=== PATIENT | female | born 1960 | race Two or more races ===

== ENCOUNTER 2021-07-13 12:41 | Outpatient (CLI) | payer OTHER | END 2021-07-13 12:53 | disposition home or self-care (01) | LOC: RAD 12:41 | PROVIDERS: ATTEND Obstetrics & Gynecology | DX: M81.0 Age-related osteoporosis without current pathological fracture (principal) ==

== ENCOUNTER 2021-10-09 07:04 | Outpatient (CLI) | payer OTHER | END 2021-10-09 07:18 | disposition home or self-care (01) | LOC: TOM 07:04 | PROVIDERS: ATTEND Internal Medicine Cardiovascular Disease | DX: G45.9 Transient cerebral ischemic attack, unspecified (principal) ==

== ENCOUNTER 2022-09-13 16:09 | Outpatient (CLI) | payer OTHER | END 2022-09-13 16:12 | disposition home or self-care (01) | LOC: RAD 16:09 | DX: J18.8 Other pneumonia, unspecified organism (principal) ==

== ENCOUNTER 2023-05-15 09:12 | Outpatient (CLI) | payer OTHER | END 2023-05-15 09:19 | disposition home or self-care (01) | LOC: SONOGRAMA 09:12 | PROVIDERS: ATTEND Internal Medicine | DX: E06.3 Autoimmune thyroiditis (principal) ==

== ENCOUNTER → 2023-06-10 06:20 | Outpatient (CLI) | payer OTHER ==
[2023-06-10 08:26] LABS: INR 0.96; PARTIAL THROMBOPLASTIN TIME 29.6 SECONDS (22.0-34.0); PROTHROMBIN TIME 10.1 SECONDS (9.0-11.5)
[2023-06-10 09:04] LABS: HEMATOCRIT 40.6 % (36.0-45.00); HEMOGLOBIN 13.9 g/dL (12.0-15.00); MEAN CELL VOLUME 90.9 fL (80.00-100.00); MEAN CORPUSCULAR HGB CONC 34.1 g/dl (32.0-36.0); PLATELET COUNT 259 K/uL (150-450); RED BLOOD COUNT 4.47 M/uL (4.00-6.00); RED CELL DISTRIBUTION WIDTH 12.7 % (11.5-14.5)
[2023-06-10 09:15] LABS: % SATURACION 14.7 % (15-50); BILIRUBIN TOTAL 1.05 mg/dL (0.3-1.2); CALCIUM 9.3 mg/dL (8.5-10.1); CREATININE SERUM 0.74 mg/dL (0.55-1.02); FERRITIN 85.6 NG/ML (8-252); GFR 79.01; GLOBULINA 3.7 G/DL (2.4-3.5); POTASSIUM 4.3 mEq/L (3.5-5.1); TOTAL PROTEIN 7.7 gm/dL (6.4-8.2)
[2023-06-10 09:17] LABS: TSH 5.29 uIU/mL (0.358-3.74)
[2023-06-10 10:39] LABS: MANUAL PLATELET COUNT 386
[2023-06-10 10:40] LABS: PLATELET ESTIMATE NORMAL (NORMAL)
[2023-06-10 11:18] LABS: FOLIC ACID > 20.00 ng/ml (4.78-20)
== END | disposition home or self-care (01) ==
LOC: LAB 06:20
PROVIDERS: ATTEND Internal Medicine Hematology & Oncology
DX: D50.8 Other iron deficiency anemias (principal); R79.9 Abnormal finding of blood chemistry, unspecified; I10 Essential (primary) hypertension; R74.02 Elevation of levels of lactic acid dehydrogenase [LDH]; K76.89 Other specified diseases of liver; D63.8 Anemia in other chronic diseases classified elsewhere; D55.0 Anemia due to glucose-6-phosphate dehydrogenase [G6PD] deficiency; D51.1 Vitamin B12 deficiency anemia due to selective vitamin B12 malabsorption with proteinuria; D51.0 Vitamin B12 deficiency anemia due to intrinsic factor deficiency; E03.8 Other specified hypothyroidism; E06.3 Autoimmune thyroiditis; D68.8 Other specified coagulation defects; D51.3 Other dietary vitamin B12 deficiency anemia; M19.90 Unspecified osteoarthritis, unspecified site; L63.0 Alopecia (capitis) totalis

== ENCOUNTER 2023-06-10 07:25 | Outpatient (CLI) | payer OTHER | END 2023-06-10 07:32 | disposition home or self-care (01) | LOC: MAMO-SONO 07:25 | PROVIDERS: ATTEND Obstetrics & Gynecology | DX: N60.11 Diffuse cystic mastopathy of right breast (principal); N60.12 Diffuse cystic mastopathy of left breast; N60.19 Diffuse cystic mastopathy of unspecified breast; Z12.31 Encounter for screening mammogram for malignant neoplasm of breast ==

== ENCOUNTER 2023-07-01 14:04 | Outpatient (CLI) | payer OTHER | END 2023-07-01 14:07 | disposition home or self-care (01) | LOC: SONOGRAMA 14:04 | PROVIDERS: ATTEND Pathology Anatomic Pathology & Clinical Pathology | DX: E04.2 Nontoxic multinodular goiter (principal); D34 Benign neoplasm of thyroid gland ==

== ENCOUNTER 2023-08-06 07:23 | Outpatient (CLI) | payer OTHER | END 2023-08-06 07:30 | disposition home or self-care (01) | LOC: SONOGRAMA 07:23 | PROVIDERS: ATTEND General Practice | DX: E80.4 Gilbert syndrome (principal); K64.9 Unspecified hemorrhoids ==

== ENCOUNTER 2023-08-10 07:21 | Outpatient (CLI) | payer OTHER ==
[2023-08-10 10:21] LABS: HEMATOCRIT 41.3 % (36.0-45.00); HEMOGLOBIN 14.1 g/dL (12.0-15.00); MEAN CELL VOLUME 91.6 fL (80.00-100.00); MEAN CORPUSCULAR HEMOGLOBIN 31.3 pg (27.00-32.0); MEAN CORPUSCULAR HGB CONC 34.1 g/dl (32.0-36.0); PLATELET COUNT 199 K/uL (150-450); RED CELL DISTRIBUTION WIDTH 12.6 % (11.5-14.5)
[2023-08-10 10:29] LABS: PH,URINE 5.5 (5.0-8.0); URINE APPEARANCE Clear; URINE BILIRRUBIN Negative (NEGATIVE); URINE BLOOD Negative; URINE COLOR Yellow; URINE GLUCOSE Negative (NEGATIVE); URINE LEUKOCYTE Trace; URINE NITRATE Negative; URINE PROTEIN Negative (NEGATIVE); URINE UROBILINOGEN 0.2 E.U./dl
[2023-08-10 10:36] LABS: URINE BACTERIA 11.3 uL (0.0-1933); URINE RBC 7.3 uL (0.0-20.8); URINE WBC 9.8 uL (0.0-23.2)
[2023-08-10 10:48] LABS: ALBUMIN 4.2 gm/dL (3.4-5.0); BILIRUBIN TOTAL 1.32 mg/dL (0.3-1.2); CALCIUM 9.3 mg/dL (8.5-10.1); CHOL HDL RATIO 1.8 (0-5.0); CREATININE SERUM 0.64 mg/dL (0.55-1.02); FREE TRIODOTIRONINE 3.25 pg/ml (2.18-3.98); GFR 93.42; GLOBULINA 3.4 G/DL (2.4-3.5); POTASSIUM 4.69 mEq/L (3.5-5.1); T4 FREE 0.81 NG/ML (0.76-1.46); T4 TOTAL 6.15 UG/DL (4.8-13.9); TOTAL PROTEIN 7.6 gm/dL (6.4-8.2); TSH 2.15 uIU/mL (0.358-3.74)
[2023-08-10 11:04] LABS: COL EPI 90 SECONDS (82-175)
[2023-08-10 19:18] LABS: ob NEGATIVE (NEGATIVE)
[2023-08-11 13:49] LABS: FOLIC ACID > 20.00 ng/ml (4.78-20)
[2023-08-11 14:57] LABS: VITAMIN D3 25 HYDROXY 51.72 ng/ml (30-120)
== END 2023-08-10 07:22 | disposition home or self-care (01) ==
LOC: LAB 07:21
PROVIDERS: ATTEND Internal Medicine Hematology & Oncology
DX: D51.3 Other dietary vitamin B12 deficiency anemia (principal); M19.90 Unspecified osteoarthritis, unspecified site; L63.0 Alopecia (capitis) totalis; E80.4 Gilbert syndrome; M62.830 Muscle spasm of back; Z13.1 Encounter for screening for diabetes mellitus; Z13.220 Encounter for screening for lipoid disorders; Z13.29 Encounter for screening for other suspected endocrine disorder; E55.9 Vitamin D deficiency, unspecified

== ENCOUNTER 2024-03-12 09:08 | Outpatient (CLI) | payer OTHER ==
[2024-03-12 09:45] LABS: HEMATOCRIT 41.2 % (36.0-45.00); HEMOGLOBIN 14.1 g/dL (12.0-15.00); MEAN CELL VOLUME 91.9 fL (80.00-100.00); MEAN CORPUSCULAR HEMOGLOBIN 31.5 pg (27.00-32.0); MEAN CORPUSCULAR HGB CONC 34.3 g/dl (32.0-36.0); PLATELET COUNT 211 K/uL (150-450); RED BLOOD COUNT 4.48 M/uL (4.00-6.00); RED CELL DISTRIBUTION WIDTH 13.1 % (11.5-14.5)
[2024-03-12 09:48] LABS: ERYTHROCYTE SEDIMENTATION RATE 2 mm/hr
[2024-03-12 09:59] LABS: URINE APPEARANCE Clear; URINE BILIRRUBIN Negative (NEGATIVE); URINE BLOOD Negative; URINE COLOR Yellow; URINE GLUCOSE Negative (NEGATIVE); URINE KETONE Negative (NEGATIVE); URINE LEUKOCYTE Moderate; URINE NITRATE Negative; URINE PROTEIN Negative (NEGATIVE); URINE UROBILINOGEN 0.2 E.U./dl
[2024-03-12 10:03] LABS: URINE BACTERIA 36.5 uL (0.0-1933); URINE EPITHELIAL CELLS 4.1 uL (0.0-38.8); URINE RBC 4.1 uL (0.0-20.8); URINE WBC 22.3 uL (0.0-23.2)
[2024-03-12 10:14] LABS: URINE CAST 0.15 uL (0.0-1.40)
[2024-03-12 11:20] LABS: ALBUMIN 4.3 gm/dL (3.4-5.0); ALKALINE PHOSPHATASE 55 U/L (50-136); ALT/SGPT 20 U/L (12-78); ANION GAP 6 (10.0-20.0); AST/SGOT 20 U/L (15-37); BILIRUBIN TOTAL 1.77 mg/dL (0.3-1.2); BLOOD UREA NITROGEN 12 mg/dL (7-18); BUN CREA RATIO 16 (7.0-25.0); C-REACTIVE PROTEIN < 0.29 MG/DL (0.00-0.29); CALCIUM 9.5 mg/dL (8.5-10.1); CARBON DIOXIDE 34 mEq/L (21-32); CHLORIDE 108 mmol/L (98-107); CHOL HDL RATIO 2.1 (0-5.0); CHOLESTEROL 230 mg/dL (0-200); CREATININE SERUM 0.73 mg/dL (0.55-1.02); FREE TRIODOTIRONINE 2.83 pg/ml (2.18-3.98); GFR 80.01; GLOBULINA 3.4 G/DL (2.4-3.5); GLUCOSE FASTING 90 mg/dL (65-100); HDL 111 mg/dl (40-60); LDL 108 mg/dl (0-130); OSMOLALITY SERUM 284 MOSM/KG (275-295); POTASSIUM 4.95 mEq/L (3.5-5.1); SODIUM 143 mmol/L (136-145); T4 TOTAL 6.08 UG/DL (4.8-13.9); TOTAL PROTEIN 7.7 gm/dL (6.4-8.2); TRIGLYCERIDES 57 mg/dL (0-150); VLDL 11 (0-39)
== END 2024-03-12 09:30 | disposition home or self-care (01) ==
LOC: LAB 09:08
PROVIDERS: ATTEND Internal Medicine
DX: E80.4 Gilbert syndrome (principal); D51.0 Vitamin B12 deficiency anemia due to intrinsic factor deficiency; R73.9 Hyperglycemia, unspecified; E78.9 Disorder of lipoprotein metabolism, unspecified; E03.9 Hypothyroidism, unspecified; M62.830 Muscle spasm of back; M19.90 Unspecified osteoarthritis, unspecified site; Z13.1 Encounter for screening for diabetes mellitus; Z13.220 Encounter for screening for lipoid disorders; Z13.29 Encounter for screening for other suspected endocrine disorder; E55.9 Vitamin D deficiency, unspecified; Z12.11 Encounter for screening for malignant neoplasm of colon

== ENCOUNTER 2024-03-25 10:38 | Outpatient (CLI) | payer OTHER | END 2024-03-25 10:45 | disposition home or self-care (01) | LOC: RAD 10:38 | PROVIDERS: ATTEND Internal Medicine | DX: R05.9 Cough, unspecified (principal) ==

== ENCOUNTER 2024-05-15 07:31 | Outpatient (CLI) | payer OTHER | END 2024-05-15 07:34 | disposition home or self-care (01) | LOC: SONOGRAMA 07:31 | DX: E06.3 Autoimmune thyroiditis (principal) ==

== ENCOUNTER 2024-05-29 07:14 | Outpatient (CLI) | payer OTHER ==
[2024-05-29 08:26] LABS: HEMATOCRIT 39.5 % (36.0-45.00); HEMOGLOBIN 13.7 g/dL (12.0-15.00); MEAN CELL VOLUME 91.5 fL (80.00-100.00); MEAN CORPUSCULAR HEMOGLOBIN 31.7 pg (27.00-32.0); MEAN CORPUSCULAR HGB CONC 34.6 g/dl (32.0-36.0); PLATELET COUNT 224 K/uL (150-450); RED BLOOD COUNT 4.31 M/uL (4.00-6.00); RED CELL DISTRIBUTION WIDTH 12.8 % (11.5-14.5)
[2024-05-29 08:33] LABS: PH,URINE 7.5 (5.0-8.0); URINE APPEARANCE Clear; URINE BILIRRUBIN Negative (NEGATIVE); URINE BLOOD Negative; URINE COLOR Yellow; URINE GLUCOSE Negative (NEGATIVE); URINE KETONE Negative (NEGATIVE); URINE LEUKOCYTE Trace; URINE NITRATE Negative; URINE PROTEIN Negative (NEGATIVE); URINE UROBILINOGEN 0.2 E.U./dl
[2024-05-29 08:35] LABS: ERYTHROCYTE SEDIMENTATION RATE 8 mm/hr
[2024-05-29 08:37] LABS: URINE BACTERIA 6.2 uL (0.0-1933); URINE WBC 6.9 uL (0.0-23.2)
[2024-05-29 08:40] LABS: URINE EPITHELIAL CELLS 0.7 uL (0.0-38.8); URINE RBC 1.5 uL (0.0-20.8)
[2024-05-29 09:17] LABS: MYCOPLASMA PNEUMONIAE IGM NON REACTIVE (NO REACTIVE)
[2024-05-29 09:29] LABS: ALKALINE PHOSPHATASE 55 U/L (50-136); ALT/SGPT 20 U/L (12-78); ANION GAP 7 (10.0-20.0); AST/SGOT 22 U/L (15-37); BILIRUBIN TOTAL 1.26 mg/dL (0.3-1.2); BLOOD UREA NITROGEN 11 mg/dL (7-18); BUN CREA RATIO 16 (7.0-25.0); CALCIUM 9.3 mg/dL (8.5-10.1); CARBON DIOXIDE 31 mEq/L (21-32); CHLORIDE 108 mmol/L (98-107); CHOLESTEROL 214 mg/dL (0-200); GFR 83.98; GLOBULINA 3.3 G/DL (2.4-3.5); GLUCOSE FASTING 88 mg/dL (65-100); HDL 108 mg/dl (40-60); LDL 96 mg/dl (0-130); OSMOLALITY SERUM 280 MOSM/KG (275-295); POTASSIUM 4.51 mEq/L (3.5-5.1); SODIUM 141 mmol/L (136-145); T4 TOTAL 6.86 UG/DL (4.8-13.9); TOTAL PROTEIN 7.3 gm/dL (6.4-8.2); TRIGLYCERIDES 48 mg/dL (0-150); VLDL 9 (0-39)
[2024-05-29 09:34] LABS: C-REACTIVE PROTEIN < 0.29 MG/DL (0.00-0.29)
[2024-05-29 09:43] LABS: FOLIC ACID > 20.00 ng/ml (4.78-20); VITAMIN D3 25 HYDROXY 49.72 ng/ml (30-120)
[2024-05-29 09:50] LABS: FREE TRIODOTIRONINE 2.82 pg/ml (2.18-3.98)
[2024-05-29 12:00] LABS: MANUAL PLATELET COUNT 412
[2024-05-29 12:04] LABS: PLATELET ESTIMATE NORMAL (NORMAL)
== END 2024-05-29 07:16 | disposition home or self-care (01) ==
LOC: LAB 07:14
PROVIDERS: ATTEND Internal Medicine
DX: E04.9 Nontoxic goiter, unspecified (principal); E80.4 Gilbert syndrome; N28.1 Cyst of kidney, acquired; E03.9 Hypothyroidism, unspecified; D51.0 Vitamin B12 deficiency anemia due to intrinsic factor deficiency; E78.9 Disorder of lipoprotein metabolism, unspecified; R73.9 Hyperglycemia, unspecified; D59.12 Cold autoimmune hemolytic anemia; D51.3 Other dietary vitamin B12 deficiency anemia; E04.2 Nontoxic multinodular goiter; B96.0 Mycoplasma pneumoniae [M. pneumoniae] as the cause of diseases classified elsewhere; K75.4 Autoimmune hepatitis; L63.0 Alopecia (capitis) totalis; M19.90 Unspecified osteoarthritis, unspecified site; K76.89 Other specified diseases of liver; R74.02 Elevation of levels of lactic acid dehydrogenase [LDH]; I10 Essential (primary) hypertension; D50.8 Other iron deficiency anemias; E55.9 Vitamin D deficiency, unspecified

== ENCOUNTER 2024-06-18 11:19 | Outpatient (CLI) | payer OTHER | END 2024-06-18 11:26 | disposition home or self-care (01) | LOC: MAMO-SONO 11:19 | PROVIDERS: ATTEND Internal Medicine Hematology & Oncology | DX: N63.0 Unspecified lump in unspecified breast (principal); N64.4 Mastodynia; D51.0 Vitamin B12 deficiency anemia due to intrinsic factor deficiency; D59.12 Cold autoimmune hemolytic anemia; D51.3 Other dietary vitamin B12 deficiency anemia; E04.2 Nontoxic multinodular goiter; B96.0 Mycoplasma pneumoniae [M. pneumoniae] as the cause of diseases classified elsewhere; K75.4 Autoimmune hepatitis; D59.19 Other autoimmune hemolytic anemia; L63.0 Alopecia (capitis) totalis; M19.90 Unspecified osteoarthritis, unspecified site; Z12.31 Encounter for screening mammogram for malignant neoplasm of breast ==

== ENCOUNTER 2024-09-18 06:17 | Outpatient (CLI) | payer OTHER ==
[2024-09-18 08:00] LABS: HEMATOCRIT 40.3 % (36.0-45.00); HEMOGLOBIN 13.9 g/dL (12.0-15.00); MEAN CELL VOLUME 91.4 fL (80.00-100.00); MEAN CORPUSCULAR HEMOGLOBIN 31.5 pg (27.00-32.0); MEAN CORPUSCULAR HGB CONC 34.4 g/dl (32.0-36.0); PLATELET COUNT 188 K/uL (150-450); RED BLOOD COUNT 4.41 M/uL (4.00-6.00); RED CELL DISTRIBUTION WIDTH 12.6 % (11.5-14.5)
[2024-09-18 08:03] LABS: PH,URINE 7.5 (5.0-8.0); URINE APPEARANCE Clear; URINE BILIRRUBIN Negative (NEGATIVE); URINE BLOOD Negative; URINE COLOR Yellow; URINE GLUCOSE Negative (NEGATIVE); URINE KETONE Negative (NEGATIVE); URINE LEUKOCYTE Trace; URINE NITRATE Negative; URINE PROTEIN Negative (NEGATIVE); URINE UROBILINOGEN 0.2 E.U./dl
[2024-09-18 08:04] LABS: URINE BACTERIA 12.2 uL (0.0-1933); URINE WBC 5.5 uL (0.0-23.2)
[2024-09-18 08:07] LABS: ERYTHROCYTE SEDIMENTATION RATE 2 mm/hr
[2024-09-18 08:12] LABS: URINE EPITHELIAL CELLS 0.9 uL (0.0-38.8); URINE RBC 0.2 uL (0.0-20.8)
[2024-09-18 09:33] LABS: ALKALINE PHOSPHATASE 58 U/L (50-136); ALT/SGPT 19 U/L (12-78); ANION GAP 6 (10.0-20.0); AST/SGOT 24 U/L (15-37); BILIRUBIN TOTAL 1.27 mg/dL (0.3-1.2); BLOOD UREA NITROGEN 9 mg/dL (7-18); BUN CREA RATIO 13 (7.0-25.0); CALCIUM 8.9 mg/dL (8.5-10.1); CARBON DIOXIDE 33 mEq/L (21-32); CHLORIDE 105 mmol/L (98-107); CHOL HDL RATIO 2.1 (0-5.0); CHOLESTEROL 201 mg/dL (0-200); CREATININE SERUM 0.69 mg/dL (0.55-1.02); FREE TRIODOTIRONINE 2.99 pg/ml (2.18-3.98); GFR 85.38; GLOBULINA 3.2 G/DL (2.4-3.5); GLUCOSE FASTING 89 mg/dL (65-100); HDL 96 mg/dl (40-60); LDL 91 mg/dl (0-130); OSMOLALITY SERUM 278 MOSM/KG (275-295); POTASSIUM 4.29 mEq/L (3.5-5.1); SODIUM 140 mmol/L (136-145); T4 TOTAL 5.62 UG/DL (4.8-13.9); TOTAL PROTEIN 7.2 gm/dL (6.4-8.2); TRIGLYCERIDES 69 mg/dL (0-150); VLDL 13 (0-39)
[2024-09-18 09:34] LABS: C-REACTIVE PROTEIN < 0.29 MG/DL (0.00-0.29)
== END 2024-09-18 06:24 | disposition home or self-care (01) ==
LOC: LAB 06:17
PROVIDERS: ATTEND Internal Medicine
DX: E80.4 Gilbert syndrome (principal); D51.0 Vitamin B12 deficiency anemia due to intrinsic factor deficiency; R73.9 Hyperglycemia, unspecified; E78.9 Disorder of lipoprotein metabolism, unspecified; N28.1 Cyst of kidney, acquired; E04.9 Nontoxic goiter, unspecified

== ENCOUNTER → 2024-12-30 08:47 | Outpatient (CLI) | payer OTHER ==
[2024-12-30 10:03] LABS: BASO % 0.4 % (0.1-1.2); EOS # 0.05 (0.04-0.54); EOS % 0.7 % (0.7-7.0); HEMOGLOBIN 13.6 g/dL (11.2-15.7); LYMPH # 0.66 (1.18-3.74); LYMPH % 9.5 % (19.3-53.1); MEAN CORPUSCULAR HEMOGLOBIN 31.6 pg (25.6-32.2); MONO # 0.61 (0.24-0.82); MONO % 8.8 % (4.7-12.5); NEUT # 5.58 (1.56-6.13); NEUT % 80.3 % (34.0-71.1); PLATELET COUNT 194 K/uL (163-369); RED BLOOD COUNT 4.31 M/uL (3.93-5.22); RED CELL DISTRIBUTION WIDTH 12.1 % (11.6-14.4)
[2024-12-30 10:44] LABS: MYCOPLASMA PNEUMONIAE IGM NON REACTIVE (NO REACTIVE)
[2024-12-30 10:49] LABS: ALBUMIN 4.3 gm/dL (3.4-5.0); BILIRUBIN TOTAL 1.98 mg/dL (0.3-1.2); CALCIUM 9.2 mg/dL (8.5-10.1); CREATININE SERUM 0.67 mg/dL (0.55-1.02); GFR 88.33; GLOBULINA 3.2 G/DL (2.4-3.5); POTASSIUM 3.98 mEq/L (3.5-5.1); TOTAL PROTEIN 7.5 gm/dL (6.4-8.2)
[2024-12-30 11:21] LABS: RF NEGATIVE (NEGATIVE)
[2024-12-30 11:32] LABS: PH,URINE 5.5 (5.0-8.0); URINE APPEARANCE Clear; URINE BILIRRUBIN Negative (NEGATIVE); URINE BLOOD Negative; URINE COLOR Yellow; URINE GLUCOSE Negative (NEGATIVE); URINE KETONE Trace (NEGATIVE); URINE LEUKOCYTE Moderate; URINE NITRATE Negative; URINE PROTEIN Negative (NEGATIVE); URINE UROBILINOGEN 0.2 E.U./dl
[2024-12-30 11:35] LABS: URINE BACTERIA 41.6 uL (0.0-1933); URINE EPITHELIAL CELLS 4.9 uL (0.0-38.8); URINE RBC 3.5 uL (0.0-20.8); URINE WBC 55.8 uL (0.0-23.2)
[2024-12-30 11:54] LABS: MANUAL PLATELET COUNT 216
[2024-12-30 11:56] LABS: CHOL HDL RATIO 2.2 (0-5.0); FREE TRIODOTIRONINE 2.55 pg/ml (2.18-3.98); T4 TOTAL 6.91 UG/DL (4.8-13.9); TSH 4.04 uIU/mL (0.358-3.74)
[2024-12-30 13:12] LABS: FOLIC ACID > 20.00 ng/ml (4.78-20); VITAMIN D3 25 HYDROXY 52.54 ng/ml (30-120)
[2024-12-31 11:12] LABS: COMPLEMENT C3 117 mg/dL (82-167); COMPLEMENT C4 28 mg/dL (12-38); HAPTOGLOBIN 64 mg/dL (37-355)
[2024-12-31 13:08] LABS: DNA AB DOUBLE STRABDED < 1 IU/mL (0-9)
== END | disposition home or self-care (01) ==
LOC: LAB 08:47
PROVIDERS: ATTEND Internal Medicine Hematology & Oncology
DX: E04.9 Nontoxic goiter, unspecified (principal); E80.4 Gilbert syndrome; N26.1 Atrophy of kidney (terminal); E03.9 Hypothyroidism, unspecified; D51.0 Vitamin B12 deficiency anemia due to intrinsic factor deficiency; E78.9 Disorder of lipoprotein metabolism, unspecified; R73.9 Hyperglycemia, unspecified; D50.8 Other iron deficiency anemias; K76.89 Other specified diseases of liver; R74.02 Elevation of levels of lactic acid dehydrogenase [LDH]; I10 Essential (primary) hypertension; E55.9 Vitamin D deficiency, unspecified; M32.9 Systemic lupus erythematosus, unspecified; M06.9 Rheumatoid arthritis, unspecified; K74.3 Primary biliary cirrhosis; D51.1 Vitamin B12 deficiency anemia due to selective vitamin B12 malabsorption with proteinuria; D59.12 Cold autoimmune hemolytic anemia; D51.3 Other dietary vitamin B12 deficiency anemia; E04.2 Nontoxic multinodular goiter; B96.0 Mycoplasma pneumoniae [M. pneumoniae] as the cause of diseases classified elsewhere; K75.4 Autoimmune hepatitis; L63.0 Alopecia (capitis) totalis; M19.90 Unspecified osteoarthritis, unspecified site

== ENCOUNTER → 2025-02-25 06:27 | Outpatient (CLI) | payer OTHER ==
[2025-02-25 08:20] LABS: ob NEGATIVE (NEGATIVE)
== END | disposition home or self-care (01) ==
LOC: LAB 06:27
PROVIDERS: ATTEND Internal Medicine Gastroenterology
DX: Z12.11 Encounter for screening for malignant neoplasm of colon (principal)

== ENCOUNTER 2025-02-25 07:04 | Outpatient (CLI) | payer OTHER | END 2025-02-25 07:08 | disposition home or self-care (01) | LOC: SONOGRAMA 07:04 | PROVIDERS: ATTEND Internal Medicine Gastroenterology | DX: R10.9 Unspecified abdominal pain (principal) ==

== ENCOUNTER 2025-03-03 13:17 | Outpatient (CLI) | payer OTHER | END 2025-03-03 13:19 | disposition home or self-care (01) | LOC: TOM 13:17 | DX: J18.8 Other pneumonia, unspecified organism (principal) ==

== ENCOUNTER 2025-04-15 06:48 | Outpatient (CLI) | payer OTHER ==
[2025-04-15 07:45] LABS: URINE APPEARANCE Clear; URINE BILIRRUBIN Negative (NEGATIVE); URINE BLOOD Negative; URINE COLOR Yellow; URINE GLUCOSE Negative (NEGATIVE); URINE KETONE Negative (NEGATIVE); URINE LEUKOCYTE Trace; URINE NITRATE Negative; URINE PROTEIN Negative (NEGATIVE); URINE UROBILINOGEN 0.2 E.U./dl
[2025-04-15 07:48] LABS: URINE BACTERIA 8.4 uL (0.0-1933); URINE WBC 4.4 uL (0.0-23.2)
[2025-04-15 07:55] LABS: BASO % 0.7 % (0.1-1.2); EOS # 0.05 (0.04-0.54); EOS % 0.9 % (0.7-7.0); LYMPH # 0.96 (1.18-3.74); LYMPH % 17.2 % (19.3-53.1); MEAN PLATELET VOLUME 11.80 fl (9.4-12.4); MONO # 0.54 (0.24-0.82); MONO % 9.7 % (4.7-12.5); NEUT # 3.96 (1.56-6.13); NEUT % 71.1 % (34.0-71.1); RED CELL DISTRIBUTION WIDTH 12.0 % (11.6-14.4); URINE EPITHELIAL CELLS 0.7 uL (0.0-38.8); URINE RBC 1.3 uL (0.0-20.8)
[2025-04-15 07:56] LABS: URINE CAST 0.00 uL (0.0-1.40)
[2025-04-15 07:59] LABS: ERYTHROCYTE SEDIMENTATION RATE 1 mm/hr (0-30)
[2025-04-15 08:48] LABS: ALT/SGPT 23 U/L (12-78); AST/SGOT 18 U/L (15-37); BILIRUBIN TOTAL 1.35 mg/dL (0.3-1.2); BUN CREA RATIO 11 (7.0-25.0); CHOL HDL RATIO 2.1 (0-5.0); CREATININE SERUM 0.71 mg/dL (0.55-1.02); FREE TRIODOTIRONINE 2.76 pg/ml (2.18-3.98); GFR 82.36; GLOBULINA 3.4 G/DL (2.4-3.5); GLUCOSE FASTING 88 mg/dL (65-100); HDL 104 mg/dl (40-60); LDL 96 mg/dl (0-130); OSMOLALITY SERUM 279 MOSM/KG (275-295); T4 TOTAL 6.02 UG/DL (4.8-13.9); TSH 3.860 uIU/mL (0.358-3.74); VLDL 15 (0-39)
== END 2025-04-15 06:54 | disposition home or self-care (01) ==
LOC: LAB 06:48
PROVIDERS: ATTEND Internal Medicine
DX: E80.4 Gilbert syndrome (principal); D51.0 Vitamin B12 deficiency anemia due to intrinsic factor deficiency; R73.9 Hyperglycemia, unspecified; E78.9 Disorder of lipoprotein metabolism, unspecified; E03.9 Hypothyroidism, unspecified; N28.1 Cyst of kidney, acquired; E04.9 Nontoxic goiter, unspecified

== ENCOUNTER 2025-05-17 07:07 | Outpatient (CLI) | payer OTHER | END 2025-05-17 07:12 | disposition home or self-care (01) | LOC: SONOGRAMA 07:07 | PROVIDERS: ATTEND Internal Medicine | DX: E06.3 Autoimmune thyroiditis (principal) ==

== ENCOUNTER 2025-06-07 09:02 | Outpatient (CLI) | payer OTHER | END 2025-06-07 09:08 | disposition home or self-care (01) | LOC: SONOGRAMA 09:02 | PROVIDERS: ATTEND Pathology Anatomic Pathology | DX: D34 Benign neoplasm of thyroid gland (principal); E07.89 Other specified disorders of thyroid; E04.2 Nontoxic multinodular goiter ==

== ENCOUNTER 2025-06-23 11:04 | Outpatient (CLI) | payer OTHER | END 2025-06-23 11:12 | disposition home or self-care (01) | LOC: MAMO-SONO 11:04 | PROVIDERS: ATTEND Specialist | DX: N60.11 Diffuse cystic mastopathy of right breast (principal); N60.12 Diffuse cystic mastopathy of left breast; Z12.31 Encounter for screening mammogram for malignant neoplasm of breast ==